=== PATIENT | male | born 1985 | race Caucasian/White ===

== ENCOUNTER → 2020-08-17 15:24 | Outpatient (CLI) | payer OTHER, SELFPAY ==
--- NOTE | ~2020-08-17 | XR_ITS ---
XR knee RT 3V 08/17/2020 16:17 INDICATION: Right knee pain PROCEDURE: 3 views right knee COMPARISON: No prior studies for comparison. FINDINGS: Fracture, dislocation or subluxation is not identified. The soft tissues appear within norm al limits. No foreign bodies are identified. IMPRESSION: 1: NO ACUTE BONE OR JOINT ABNORMALITY IDENTIFIED. Reviewed, dictated and finalized at location B.
== END ==
PROVIDERS: PCP Family Medicine; Visit Provider Physician Assistant
DX: S89.91XA Unspecified injury of right lower leg, initial encounter (principal); X58.XXXA Exposure to other specified factors, initial encounter
CPT/HCPCS: 73562

== ENCOUNTER → 2020-09-28 08:00 | Outpatient (CLI) | payer OTHER, SELFPAY ==
--- NOTE | ~2020-09-28 | MR_ITS ---
EXAMINATION: MR knee RT wo con DATE: 09/28/2020 08:38 INDICATION: Right knee pain. TECHNIQUE: Magnetic resonance imaging (MRI) of the right knee was performed without intravenous contr ast. Sequences included axial PD-weighted FS FSE, coronal PD-weighted FSE and PD-weighted FS FSE, sag ittal PD-weighted FSE, and sagittal T2-weighted FS FSE. COMPARISON: Right knee radiograph 08/17/2020 FINDINGS: Medial compartment: Medial meniscus is normal. Medial compartment cartilage is normal. Lateral compartment: There is a radial tear of body of lateral meniscus. There is a 1.8 x 0.7 x 1.4 cm multiloculated para labral cyst. Lateral compartment cartilage is normal. Patellofemoral compartment: Patellar cartilage is normal. Trochlear cartilage is normal. Ligaments and tendons: The anterior and posterior cruciate ligaments are normal. Medial collateral ligament and lateral neema ateral ligament complex are normal. Fluid: There is a small knee joint effusion. There is trace fluid in a Dee's cyst. There is mild prepatell ar and superficial infrapatellar bursitis. IMPRESSION: 1. Tear of body of lateral meniscus with paralabral cyst. 2. Small knee joint effusion. Reviewed, dictated and finalized at location A.
== END ==
PROVIDERS: PCP Family Medicine; Visit Provider Nurse Practitioner Family
DX: M25.461 Effusion, right knee (principal); S83.281A Other tear of lateral meniscus, current injury, right knee, initial encounter; X58.XXXA Exposure to other specified factors, initial encounter
CPT/HCPCS: 73721

== ENCOUNTER 2022-05-09 01:10 | Day surgery (SDC) | payer OTHER, SELFPAY ==
[2022-05-05 09:16] VITALS: BMI 34.7
--- NOTE | 2022-05-05 09:23 | PC.NURSE ---
Report to the Outpatient Waiting Room, entrance under the green pavilion located off [facility], at time 6:00 on date 05/09/22. Planned Procedure Time: 7:30. Time changes happen often and if your time is changed the preop area will call you the afternoon before. - You and your visitor will be asked to self-screen and do not enter if you have any COVID symptoms. - Only one visitor is requested with a max of two and NO children visitors are allowed at this time. - The patient visitor may be requested to leave or wait in car when not with patient due to distancing restrictions. - A mask is optional within the hospital at this time. Patients may have clear liquids (water, carbonated beverages, clear teas, apple juice) until 3 hours prior to surgery with a maximum of 20 ounces. - No food from midnight until time of surgery Take the following medications with a SIP of water the morning of surgery: N/A DO NOT STOP ANY OF YOUR OTHER PRESCRIPTION MEDICATIONS PRIOR TO SURGERY?EXCEPT THE FOLLOWING Medications to discontinue per physician: N/A Date to take last dose: N/A Please no make-up, nail syrian, hairspray, perfume, deodorant, or body powder the day of surgery. No jewelry (including any body piercings) or valuables the day of surgery, leave them at home. Please take a shower or bath the night before, or the morning of, surgery with an antibacterial soap. Wear comfortable, loose fitting clothing. - Jewelry must be removed prior to entering the operating room. Rings and piercings that are not removed may be cut off. - The hospital will not accept responsibility for valuables. - Please leave all valuables, including medications, at home the day of surgery. If you are going home after surgery, a licensed solid waste truck driver must drive you home. - NO public transportation without another adult if you receive anesthesia. - We recommend that an adult stay with you for 24 hours following discharge. - We also recommend that you do not drive, make important decision, drink alcoholic beverages, or take any drugs that were not prescribed by your health care provider for at least 24 hours after your discharge time. Follow any additional instructions given to you from your surgeon. If you or anyone in your household have experienced Covid symptoms in the past week, please notify your surgeon or the nurse liaison at the phone number below for possible testing. Telephone instructions given to DEANN JORGE and asked if any additional questions and then verbalized understanding. Patient advised to call surgeon office or pre surgery nurse liaison [phone] if any additional questions.
[2022-05-09] VITALS (8 sets, daily range): BP systolic 120–139; BP diastolic 75–96; PULSE 72–88; RESP 14–16; TEMP 36.4–36.7; O2SAT 98–100
[2022-05-09] MEDS: ACETAMINOPHEN 500 MG TABLET 1000 MG PO (06:50)
[2022-05-09] MEDS: CELECOXIB 200 MG CAPSULE PO (06:50)
[2022-05-09] MEDS: LACTATED RINGERS 1,000 ML 30 ML IV CONT (06:59)
--- NOTE | 2022-05-09 06:59 | P.PNAN_ITS ---
Anes - Initial Pre Proc Eval Procedure: Operation Date: 05/09/22 07:30 Proposed Procedures p Right Knee Arthroscopy - Sincere Hall MD Date/Time: 05/09/22 06:59 Surgeon: Sincere Hall MD Pre Op Diagnosis: Rt Knee Lat Meniscus Tear, Paralaberial Cyst Patient Data Age: 37 Gender: M Height: 1.88 m Weight: 124.1 kg Allergies Allergy/AdvReac Type Severity Reaction Status Date / Time No Known Allergies Allergy Unknown Verified 05/09/22 06:18 Home Medications Medication Instructions Recorded Confirmed Type chlorhexidine gluconate 4 % 1 applic topical ONCE #237 mL 05/02/22 05/05/22 Rx topical liquid (Hibiclens) Patient hx anesthesia problems: none Family hx anesthesia problems: none Results Review: All pre-operative results and documents have been reviewed as part of the pre- operative evaluation. PMFSH Past Medical History Medical History Anxiety Bleeding nose Depression Epiploic appendagitis HLD (hyperlipidemia) Hypersomnolence Insomnia Lateral meniscal tear Mood disorder Right knee pain Thrombocytopenia Surgical History Surgical History History of shoulder surgery Bilateral Social History Social History Smoking status: Current every day smoker Smokeless tobacco user: chewing tobacco Second hand tobacco smoke exposure: No Smoking end date: 02/23/17 Alcohol intake: current Drinks per week: 5 Alcohol use details: rare Substance use: never Substance use type: does not use Living arrangements: with family Occupation/Education: occupation Gender identity (if verbalized by the patient): Male Sexual Orientation (if Verbalized by the Patient): Straight or Heterosexual Spiritual care concerns: No Anes - Eval Final PreProcedure Day of Procedure 05/09/22 06:59 Patient weight: obese Heart: regular rate and rhythm Lungs: clear to auscultation Airway: Mallampati scale class 1 Neurological: alert and oriented Last oral intake: >/= 8 hours ASA classification: III Emergent: no Anesthetic plan: proceed Anesthesia type and monitoring: general LMA and standard monitoring Results Review: All pre-operative results and documents have been reviewed as part of the pre- operative evaluation. Informed Consent: The patient's anesthetic plan and its attendant risks and benefits were discussed with the patient/family/POA. Questions were solicited and answers provided to the satisfaction of the patient/family/POA.
--- NOTE | 2022-05-09 07:14 | WPDHPUPDATE1 ---
History and Physical Update Update Date/Time: 05/09/22 07:14 History and Physical has been reviewed, including an updated exam of the patient. There are NO changes in the patient's condition. Risks, benefits, and alternatives have been discussed and questions answered. Patient agrees to proceed with procedure.
[2022-05-09] MEDS: ceFAZolin 3 GM/D5W 100 ML 100 ML IVPB (07:22)
[2022-05-09] MEDS: BUPivacaine HCL 0.5% 10 ML AMP 30 ML INFILTRATE (07:43)
--- NOTE | 2022-05-09 08:48 | P.OP_ITS ---
Procedure Note - Detailed Date of Procedure 05/09/22 Pre-op Diagnosis Rt Knee Lat Meniscus Tear, Paralaberial Cyst Post-op Diagnosis Same Procedure Performed RIGHT KNEE SCOPE Surgeon Sincere Hall MD Anesthesia General Description of Procedure PATIENT WAS TAKEN TO THE OPERATING ROOM SUITE. ANESTHESIA WAS INDUCED. THE RIGHT LEG WAS PREPPED AND DRAPED STERILE. TROCARS WERE PLACED IN TO THE KNEE JOINT IN THE USUAL FASHION. THE CAMERA WAS INTRODUCED. THERE WAS MILD CHONDROMALACIA TO THE PATELLA FEMORAL JOINT. THERE WAS A LOT OF SYNOVITIS IN ALL COMPARTMENTS. THERE WAS A LARGE PLICA ON THE MEDIAL RETINACULUM THAT WAS IMPINGING ON THE MEDIAL FEMORAL CONDYLE. THE MEDIAL COMPARTMENT SHOWED NO CHONDROMALACIA TO THE MEDIAL FEMORAL CONDYLE OR PLATEAU. THERE WAS NO MEDIAL MENISCUS TEAR. THE ACL WAS INTACT. THE LATERAL MENISCUS SHOWED TO HAVE A LARGE RADIAL TEAR AT THE MID SUBSTANCE AND EXTENDED TO THE POSTERIOR HORN. THE TEAR CONTINUED THROUGH THE RED ZONE AND INTO THE POSTERIOR SYNOVIUM . THE TEAR WAS RESECTED WITH A BITER AND A SHAVER WAS THE CYST WELL. THE LATERAL COMPARTMENT HAD MINIMAL CH ONDROMALACIA AT THE LATERAL FEMORAL CONDYLE. A SYNOVECTOMY WAS PREFORMED. THE PATELLO FEMORAL JOINT UNDERWENT CHONDROPLASTY OVER THE PATELLA. THERE WAS GRADE 2 CHONDROMALACIA IN A SMALL SECTION OF THE OF THE PATELLA. SYNOVECTOMY WAS PREFORMED IN THE SUPERIOR MEDIAL COMPARTMENT REMOVING THE PLICA BAND. THE WOUNDS WERE APPROXIMATED WITH 4.0 NYLON. STERILE DRESSING WAS APPLIED. PATIENT WAS EXTUBATED. Estimated Blood Loss 5 Complications No immediate complications Condition Stable Disposition PACU
[2022-05-09] MEDS: fentaNYL CITRATE INJ (*CRX) 100 MCG/2 ML VIAL 25 MCG IV PUSH ×4 (08:58→09:09)
[2022-05-09] MEDS: oxyCODONE HCL (*CRX) 5 MG TAB IR PO (09:47)
== END 2022-05-09 10:20 | disposition home or self-care (01) ==
PROVIDERS: PCP Family Medicine; Visit Provider Orthopaedic Surgery
PROC: (CPT 29870; principal; 2022-05-09 07:30)
DX: S83.281A Other tear of lateral meniscus, current injury, right knee, initial encounter (principal); X58.XXXA Exposure to other specified factors, initial encounter; M94.261 Chondromalacia, right knee; M65.861 Other synovitis and tenosynovitis, right lower leg; M67.51 Plica syndrome, right knee
CPT/HCPCS: 29881; A9270; J0690; J1100; J2250; J2270; J2405; J2704; J3010; J7120